=== PATIENT | female | born 1955 | race Caucasian/White ===

== ENCOUNTER → 2016-10-29 | Outpatient (CLI) | payer OTHER | LOC: FIMAGING 17:11 | PROVIDERS: ATTEND Internal Medicine Rheumatology | DX: M19.049 Primary osteoarthritis, unspecified hand (principal) ==

== ENCOUNTER → 2017-04-15 | Outpatient (CLI) | payer OTHER | LOC: FIMAGING 14:25 | PROVIDERS: ATTEND Internal Medicine Endocrinology, Diabetes & Metabolism | DX: Z12.31 Encounter for screening mammogram for malignant neoplasm of breast (principal); Z13.820 Encounter for screening for osteoporosis; Z78.0 Asymptomatic menopausal state; Z82.62 Family history of osteoporosis | CPT/HCPCS: G0202 ==

== ENCOUNTER → 2017-04-19 | Outpatient (CLI) | payer OTHER | LOC: FIMAGING 14:04 | PROVIDERS: ATTEND Surgery | DX: Z00.00 Encounter for general adult medical examination without abnormal findings (principal) ==

== ENCOUNTER 2017-07-14 05:46 | Inpatient (IN) | payer OTHER ==
--- NOTE | 2017-07-08 18:17 | GHP ---
[f rep st] PREOP HISTORY AND PHYSICAL DATE OF ADMISSION: 07/14/2017 HISTORY OF PRESENT ILLNESS: The patient is a 62-year-old woman admitted for a right total knee arthr oplasty. She has a long history of chronic and progressive pain in her right knee. She has been shaila gnosed with rheumatoid arthritis in the past. That diagnosis eventually evolved into a diagnosis of Sjogren syndrome. She has tried cortisone injections and viscosupplementation injections. She has a lso tried an mold unloader brace. She is now having severe daily pain, which is interfering with activiti es of daily living. She is admitted for a right total knee arthroplasty. PAST MEDICAL HISTORY: She has had 2 spontaneous pulmonary emboli. One occurred following a cervical spine fusion in 2009. She is on chronic anticoagulation with Coumadin. She has had a cervical spin e fusion. She has a diagnosis of Sjogren syndrome. No history of heart disease, stents, hepatitis o r bleeding problems. She has sleep apnea and uses a CPAP machine. CURRENT MEDICATIONS: Celebrex 200 mg daily. Cyclobenzaprine 10 mg daily. Forteo for osteoporosis. Effexor 75 mg 3 tablets per day. She monitors her INR and adjusts her Coumadin levels herself. She normally takes between 15 and 20 mg of Coumadin per day. She uses Ambien 10 mg at night for sleep. DRUG ALLERGIES: She is allergic to sulfa drugs, Plaquenil, Azulfidine and Relafen. She states that hydrochlorothiazide has upset her electrolyte balance. METAL ALLERGIES: None. LATEX ALLERGY: None. SOCIAL HISTORY: The patient is . She is retired. She does not smoke cigarettes or drink alc ohol. IMAGING STUDIES: Films from June 03, 2017, show severe medial compartment degenerative arthritis of her right knee. She is [id number]. Osteoporosis is present. IMPRESSION ON ADMISSION: 1. Right knee severe degenerative arthritis. She is prepared for a right total knee arthroplasty. 2. History of pulmonary emboli. She is on chronic anticoagulation. 3. Sjogren syndrome. 4. Sleep apnea. 5. A left total hip arthroplasty in 2011. PLAN: She will undergo a right total knee arthroplasty. The surgery has been described to her and t o her , including the risks, complications, expectations, and recovery time. I have stressed the importance of postoperative physical therapy. She will go to outpatient physical therapy either at our office or at [facility]. Her primary care doctor is Dr. Charly Rush. Dr. Des Martin in is her drivematic machine operator in [place], he manages her anticoagulation. She will have bridge therapy. She will stop her Coumadin 5 days before surgery and take Lovenox up u ntil the day before surgery. The surgery has been described to her, including the risks, complications, expectations, and recovery time. I have stressed the importance of postoperative physical therapy. Aggressive postoperative a nticoagulation for her history of pulmonary emboli increases her risk for postoperative hemarthrosis, stiffness and delayed wound healing. All her questions have been answered, and she consents to surg tamanna. Copy requested to: Des Baez MD /[id number]/MODL
[2017-07-14] MEDS ORDERED: ROPIVACAINE 0.2% 80 MG, EPINEPHrine 0.2 MG, KETOROLAC TROMETHAMINE 30 MG in SYRINGE 0 ML IU ONE (06:00)
[2017-07-14] MEDS ORDERED: POVIDONE-IODINE 20 ML in SODIUM CL IRRIG SOLUTION 500 ML IRR ONE (06:00)
[2017-07-14] MEDS ORDERED: TRANEXAMIC ACID 1,500 MG in NS 100 ML IV ONE (06:00)
[2017-07-14] MEDS ORDERED: FAMOTIDINE 20 MG TAB PO ONE (06:19)
[2017-07-14] MEDS ORDERED: DEXAMETHASONE 4 MG/ML VIAL IVP ONE (06:19)
[2017-07-14] MEDS ORDERED: ACETAMINOPHEN 325 MG TAB PO ONE (06:19)
[2017-07-14] MEDS ORDERED: GABAPENTIN 300 MG CAP PO ONE (06:19)
[2017-07-14] MEDS ORDERED: ceFAZolin 2 GM/SWFI 2 GM/20 ML SYR IVP ONE (06:19)
[2017-07-14] MEDS ORDERED: LIDOCAINE 1% 2 ML INJ ID PRN (06:20)
[2017-07-14] MEDS ORDERED: LR 1,000 ML IV ONE (06:20)
[2017-07-14] MEDS ORDERED: VANCOMYCIN 1 GM VIAL ONE (06:34)
[2017-07-14] MEDS ORDERED: ceFAZolin 1 GM/5 ML SYR ONE (06:35)
--- NOTE | 2017-07-14 06:53 | PDANEPAE ---
ANE History of Present Illness R TKA ANE Past Medical History - Cardiovascular History Hx Hypertension: No Hx Arrhythmias: No Hx Chest Pain: No Hx Coronary Artery / Peripheral Vascular Disease: No Hx CHF / Valvular Disease: No Hx Palpitations: No - Pulmonary History Hx COPD: No Hx Asthma/Reactive Airway Disease: No Hx Recent Upper Respiratory Infection: No Hx Oxygen in Use at Home: No O2 in Use at Home (L/minute): 2L w/CPAP for sleep Hx Sleep Apnea: No Sleep Apnea Screening Result - Last Documented: Positive Pulmonary History Comment: Pulmonary embolism-post op and family hx. On Coumadin. SRIRAM USES CPAP W/2L - Neurologic History Hx Cerebrovascular Accident: No Hx Seizures: No Hx Dementia: No Neurologic History Comment: on Primadone for Essential Tremors - Endocrine History Hx Diabetes: No - Renal History Hx Renal Disorders: Yes Renal History Comment: recent UTI-tx w/Levaquin - Liver History Hx Hepatic Disorders: No - Neurological & Psychiatric Hx Hx Neurological and Psychiatric Disorders: Yes Neurological / Psychiatric History Comment: L5/S1 Spondylolisthesis. Family hx depression- on Effexor. - Cancer History Hx Cancer: Yes Cancer History Comment: basal and squamous cell skin - Congenital Disorder History Hx Congenital Disorders: No - GI History Hx Gastrointestinal Disorders: No - Other Health History Other Health History: R knee pain. RA dx 1983. Osteoporosis- on Forteo. Sjogren's syndrome - Chronic Pain History Chronic Pain: Yes (R knee) - Surgical History Prior Surgeries: Foot sx x4 Right. foot sx x2 Left. Ablation for SVT. BSO. cervical fusion. lap Mirtha. gastric bypass ANE Review of Systems Review of systems is: negative Review of Systems: - Exercise capacity METS (RN): 4 METS ANE Patient History - Allergies Allergies/Adverse Reactions: nabumetone [From Relafen] Allergy (Severe, Verified 07/05/17 16:58) Cognitive Confusion nitrofurantoin [From Macrobid] Allergy (Severe, Verified 07/05/17 16:58) Liver Failure nitrofurantoin macrocrystalline [From Macrobid] Allergy (Severe, Verified 16:58) Liver Failure Sulfa (Sulfonamide Antibiotics) Allergy (Severe, Verified 07/05/17 16:58) Rash sulfasalazine [From Azulfidine] Allergy (Severe, Verified 07/05/17 16:58) Cognitive Confusion hydroxychloroquine sulfate [From Plaquenil] Allergy (Verified 07/05/17 16:58) sulfamethoxazole [From Bactrim] Allergy (Verified 07/05/17 17:06) Rash trimethoprim [From Bactrim] Allergy (Verified 07/05/17 16:58) ORAL GOLD Allergy (Severe, Uncoded 12/05/15 03:52) Cognitive Confusion HYDROCLORTHIAZIDE Allergy (Uncoded 07/05/17 17:06) Other-Enter Comments - Home Medications Home medications: home medication list seen and reviewed Home Medications: Cyclobenzaprine [Flexeril] 10 mg PO BID 08/18/11 [Last Taken 10/11/13] Venlafaxine Xr [Effexor Xr] 75 mg PO TID 08/18/11 [Last Taken 10/11/13] Calcium Carbonate/Vitamin D3 [Calcium 500 + Vit D Caplet] 1 each PO TID [Last Taken 10/11/13] celeCOXIB [Celebrex (RX)] 200 mg PO BID 10/11/13 [Last Taken 10/11/13] Ascorbic Acid [Vitamin C 500 mg (OTC)] 500 mg PO DAILY 10/12/13 [Last Taken ] Ferrous Sulfate [Ferrous Sulf 325 MG (OTC)] 325 mg PO DAILY 10/12/13 [Last Taken 10/11/13] Herbals/Supplements -Info Only 1 each PO AD 10/12/13 [Last Taken Unknown] Multivitamins [Tab-A-Lacy] 1 each PO DAILY 10/12/13 [Last Taken 10/11/13] Primidone 50 mg PO BID 10/12/13 [Last Taken 10/11/13] Warfarin Sodium [Coumadin 5MG (RX)] 20 mg PO DAILY16 10/12/13 [Last Taken ] Cholecalciferol Vit D3 [Vitamin D3 (*)] 1,000 units PO DAILY 06/16/17 [Last Taken Unknown] Ipratropium [place] [IPRATROPIUM BROMIDE] 1 spray EACHNARE DAILY 06/16/17 [Last Taken Unknown] Zolpidem Tartrate [Ambien 5MG (*)] 5 mg PO HS PRN 06/16/17 [Last Taken Unknown] Lovenox 07/05/17 [Last Taken Unknown] - NPO status NPO Status: no food or drink >8 hours NPO Since - Liquids (Date): 07/14/17 NPO Since - Liquids (Time): 05:00 NPO Since - Solids (Date): 07/13/17 NPO Since - Solids (Time): 22:00 - Anes Hx Anes Hx: no prior problems - Smoking Hx Smoking Status: Never smoked - Family Anes Hx Family Anes Hx: none ANE Labs/Vital Signs - Labs Result Diagrams: 07/14/17 06:43 - Vital Signs Blood Pressure: 129/54 Heart Rate: 71 Respiratory Rate: 16 O2 Sat (%): 93 Height: 165.1 cm Weight: 77.111 kg ANE Physical Exam - Airway Neck exam: decreased ROM Mallampati Score: Class 1 Mouth exam: normal dental/mouth exam - Pulmonary Pulmonary: no respiratory distress - Cardiovascular Cardiovascular: regular rate and rhythym - ASA Status ASA Status: III ANE Anesthesia Plan Anesthesia Plan: spinal Regional Anesthesia: adductor canal FNB, POPC/PSR
--- NOTE | 2017-07-14 06:59 | PDHPUP ---
History & Physical Update H&P update statement: This history and physical update is based on an assessment of the patient which was completed after admission or registration (within 24 hours), but prior to the surgery/procedure. H&P update: H&P reviewed & patient examined, no change in patient's condition since H&P completed
[2017-07-14 07:15] LABS: ANION GAP 10 mEq/L (8-16); CALCIUM 9.4 mg/dL (8.5-10.4); CARBON DIOXIDE 25 mEq/l (22-31); CHLORIDE 100 mEq/L (97-110); CREATININE 0.6 mg/dL (0.6-1.0); GLOMERULAR FILTRATION RATE > 60; GLUCOSE 91 mg/dL (70-100); SODIUM 135 mEq/L (134-144)
[2017-07-14] MEDS ORDERED: LIDOCAINE 2% 100 MG/5 ML SYR ONE (07:15)
[2017-07-14] MEDS ORDERED: PROPOFOL/EMULSION 500 MG/50 ML BOTTLE IV ONE ×2 (07:15→08:21)
[2017-07-14] MEDS ORDERED: ROPIVACAINE HCL 150 MG/30 ML INJ ONE (08:16)
[2017-07-14] MEDS ORDERED: ONDANSETRON 4 MG/2 ML VIAL ONE (08:26)
[2017-07-14] MEDS ORDERED: TRANEXAMIC ACID 770 MG in NS 100 ML IV ONE (08:30)
--- NOTE | 2017-07-14 08:54 | POSTANESTH ---
Post Anesthetic Evaluation Cardiovascular Status: Normal, Stable, Similar to Pre-Op Cond Respiratory Status: Similar to Pre-op Cond. Level of Consciousness/Mental Status: Can Participate in Eval, Mildly Sleepy, Arousable Pain Control: Adequate, Prn Tx Ordered Nausea/Vomiting Control: Adequate, Prn Tx Ordered Complications Possibly Related to Anesthesia: None Noted
[2017-07-14] MEDS ORDERED: PROMETHAZINE HCL 25 MG/ML INJ IVP PRN ×2 (08:55→09:18)
[2017-07-14] MEDS ORDERED: ONDANSETRON 4 MG/2 ML VIAL IVP PRN ×2 (08:55→09:18)
[2017-07-14] MEDS ORDERED: HYDROmorphONE/DILAUDID 1 MG/ML INJ IVP PRN (08:55)
[2017-07-14] MEDS ORDERED: DEXAMETHASONE 4 MG/ML VIAL IVP PRN (08:55)
[2017-07-14] MEDS ORDERED: ACETAMINOPHEN 500 MG TAB PO PRN (08:55)
[2017-07-14] MEDS ORDERED: NALOXONE HCL 0.4 MG/ML INJ IVP PRN (08:55)
[2017-07-14] MEDS ORDERED: fentaNYL 100 MCG/2 ML INJ IVP PRN (08:55)
[2017-07-14] MEDS ORDERED: OXYCODONE/APAP 5/325 TAB PO PRN (08:55)
[2017-07-14] MEDS ORDERED: HYDROCODONE/APAP 5/325 TAB PO PRN (08:55)
--- NOTE | 2017-07-14 09:04 | POSTOPPROG ---
Post Op Note Date of Operation: 07/14/17 Surgeon: Servando Bravo Railway Shunter: Des Olivas/Cas Manning Anesthesiologist: Dr. Antonio Kent Anesthesia: IV Sedation, Spinal Post-op Diagnosis: Right knee severe degenerative arthritis. Procedure: Right total knee arthroplasty. Inf/Abcess present in the surg proc area at time of surgery?: No EBL: 50-100 (Adductor canal block with indwelling catheter in PACU.)
[2017-07-14] MEDS ORDERED: ZOLPIDEM TARTRATE 5 MG TAB PO PRN (09:15)
[2017-07-14] MEDS ORDERED: MAGNESIUM HYDROXIDE 30 ML UDCUP PO PRN (09:18)
[2017-07-14] MEDS ORDERED: diphenhydrAMINE 25 MG CAP PO PRN (09:18)
[2017-07-14] MEDS ORDERED: NS 500 ML IV PRN (09:18)
[2017-07-14] MEDS ORDERED: ONDANSETRON DISINTEGRATING 4 MG TAB PO PRN (09:18)
[2017-07-14] MEDS ORDERED: traMADol 50 MG TAB PO PRN (09:18)
[2017-07-14] MEDS ORDERED: LACTULOSE 20 GM/30 ML UDCUP PO PRN (09:18)
[2017-07-14] MEDS ORDERED: CYCLOBENZAPRINE 10 MG TAB PO PRN (09:18)
[2017-07-14] MEDS ORDERED: BISACODYL 10 MG SUPP PR PRN (09:18)
[2017-07-14] MEDS ORDERED: PROMETHAZINE HCL 25 MG SUPPR PR PRN (09:18)
[2017-07-14] MEDS ORDERED: POLYETHYLENE GLYCOL 3350 17 GM PKT PO PRN (09:18)
[2017-07-14] MEDS ORDERED: KETOROLAC 30 MG/1 ML SDV IVP PRN (09:18)
[2017-07-14] MEDS ORDERED: DIPHENOXYLATE/ATROPINE LOMOTIL 1 TAB PO PRN (09:18)
[2017-07-14] MEDS ORDERED: LR 1,000 ML IV SCH (09:30)
[2017-07-14] MEDS: oxyCODONE IR 5 MG TAB PO PRN ×3 (11:16→21:04)
[2017-07-14] MEDS: ACETAMINOPHEN 325 MG TAB PO SCH ×3 (11:17→23:31)
[2017-07-14] MEDS ORDERED: WARFARIN SODIUM 5 MG TAB PO SCH (16:00)
[2017-07-14] MEDS: VENLAFAXINE XR 75 MG CAP PO SCH ×2 (16:30→21:04)
[2017-07-14] MEDS: ceFAZolin 2 GM/SWFI 2 GM/20 ML SYR IVP SCH ×2 (16:34→23:32)
[2017-07-14] MEDS: WARFARIN SODIUM 5 MG TAB PO SCH (17:31)
[2017-07-14] MEDS: SENNOSIDES/DOCUSATE SODIUM TAB PO SCH (21:04)
[2017-07-14] MEDS: PRIMIDONE 50 MG TAB PO SCH (21:04)
[2017-07-14] MEDS: FAMOTIDINE 20 MG TAB PO SCH (21:04)
[2017-07-14] MEDS ORDERED: Teriparatide [Forteo] 2.4 ML SQ SCH (21:45)
[2017-07-15] MEDS: oxyCODONE IR 5 MG TAB PO PRN ×4 (00:47→13:02)
[2017-07-15 04:39] VITALS: TEMP 97.7
[2017-07-15] MEDS: ACETAMINOPHEN 325 MG TAB PO SCH ×2 (05:28→12:44)
[2017-07-15 06:45] LABS: HEMATOCRIT 35.2 % (38.0-47.0); HEMOGLOBIN 11.8 g/dL (12.6-16.3)
[2017-07-15 06:58] LABS: INR 1.2 (0.83-1.16); PROTIME(PATIENT) 15.4 SEC (12.0-15.0)
--- NOTE | 2017-07-15 07:36 | SOAPPROG ---
SOAP Progress Note Assessment/Plan: Assessment: Afebrile. Awake and alert. She has been walking in the [place]. Moderate pain this morning. Hemoglobin and hematocrit are satisfactory. Postop films look excellent. Plan: Physical therapy today for walking and stairs. Discharged later today. We will continue her on Lovenox for 4 days and she will resume her Coumadin. She is high risk for DVT. 07/15/17 07:35 Objective: Vital Signs Temp Pulse Resp BP Pulse Ox 36.5 C 76 18 132/54 H 95 07/15/17 04:00 07/15/17 04:00 07/15/17 04:00 07/15/17 04:00 07/15/17 04:00 Laboratory Results 07/15/17 05:20 07/14/17 06:43 07/14/17 07/15/17 07/16/17 05:59 05:59 05:59 Intake Total 3027 Output Total 1500 Balance 1527 PT 15.4 SEC (12.0-15.0) H 07/15/17 05:20 INR 1.20 (0.83-1.16) H 07/15/17 05:20 ICD10 Worksheet Patient Problems: Problems Problem Status Onset Osteoarthritis of right knee Acute Chest pain Acute
--- NOTE | 2017-07-15 08:15 | GDS ---
[f rep st] DISCHARGE SUMMARY ADMISSION DIAGNOSIS: Right knee severe degenerative arthritis. DISCHARGE DIAGNOSIS: Right knee severe degenerative arthritis. PROCEDURE PERFORMED: 07/14/2017, a right total knee arthroplasty. POSTOPERATIVE COMPLICATIONS: None. CONDITION ON DISCHARGE: Improved. DESCRIPTION OF HOSPITAL COURSE: The patient was admitted to the hospital on the morning of surgery. The same day, under a combination of Marcaine, spinal, IV sedation, and adductor canal block she und erwent a right total knee arthroplasty. Postoperatively, she was treated with multimodal DVT prophyl axis. She is high risk for DVT. She was placed on Lovenox and her Coumadin was restarted. On the f irst postoperative day, her hemoglobin and hematocrit were 11.8 and 35.2. She was seen by Physical T herapy and made good progress with ambulation, stairs and knee range of motion. By the time of disch arge, she was afebrile and was independent walking. DISPOSITION: The patient is discharged to her home. She will go to outpatient physical therapy next week. She will continue Lovenox 40 mg subcu daily for 4 days. She will adjust her Coumadin dose to between 15 and 20 mg a day based on her INR. She checks her INR herself. She has prescriptions for oxycodone and tramadol. I will see her back in the office on 08/05/2017. If there are any problems , she is to call me at the office. /[id number]/MODL
[2017-07-15] MEDS ORDERED: ENOXAPARIN 40 MG/0.4 ML SYR SC SCH (09:00)
[2017-07-15] MEDS ORDERED: FERROUS SULFATE 325 MG TAB PO SCH (09:00)
[2017-07-15] MEDS ORDERED: IPRATROPIUM 0.06% NASAL SPRAY EACHNARE SCH (09:00)
[2017-07-15] MEDS: SENNOSIDES/DOCUSATE SODIUM TAB PO SCH (09:49)
[2017-07-15] MEDS: VENLAFAXINE XR 75 MG CAP PO SCH ×2 (09:50→16:08)
[2017-07-15] MEDS: FAMOTIDINE 20 MG TAB PO SCH (09:50)
[2017-07-15] MEDS: PRIMIDONE 50 MG TAB PO SCH (09:50)
[2017-07-15 09:59] VITALS: BP 139/62; PULSE 66; RESP 16; O2SAT 96
--- NOTE | 2017-07-15 10:04 | SOAPPROG ---
SOAP Progress Note Assessment/Plan: Assessment: Plan: 07/15/17 10:03 CADC cath bolus 20 cc .5% Rop, w/o incident. Cath d/C tip intact Objective: Vital Signs Temp Pulse Resp BP Pulse Ox 36.5 C 66 16 139/62 H 96 07/15/17 04:00 07/15/17 09:00 07/15/17 09:00 07/15/17 09:00 07/15/17 09:00 Laboratory Results 07/15/17 05:20 07/14/17 06:43 07/14/17 07/15/17 07/16/17 05:59 05:59 05:59 Intake Total 3027 Output Total 1500 Balance 1527 PT 15.4 SEC (12.0-15.0) H 07/15/17 05:20 INR 1.20 (0.83-1.16) H 07/15/17 05:20 ICD10 Worksheet Patient Problems: Problems Problem Status Onset Osteoarthritis of right knee Acute Chest pain Acute
--- NOTE | 2017-07-15 14:50 | ASMTCMCOM ---
CM Note CM Note Notes: Pt medically stable for d/c, PT does not rec HHC. No CM d/c needs identified. Date Signed: 07/15/2017 02:50 PM Electronically Signed By:NICOLE Aranda
[2017-07-15] MEDS: WARFARIN SODIUM 5 MG TAB PO SCH (16:08)
--- NOTE | 2017-07-16 09:45 | ASDISCHSUM ---
Discharge Information Plan Status:Home with No Needs Medically Cleared to Leave: Discharge Date:07/15/2017 05:37 PM D/C Disposition:Home, Routine, Self-Care ADT D/C Disposition:Home, Routine, Self-Care Projected Discharge Date:07/15/2017 05:37 PM Transportation at D/C: Discharge Delay Reason: Follow-Up Date:07/15/2017 05:37 PM Discharge Slot: Final Diagnosis: Placement Information Patient Contact Information Contact Name:REMIGIO Relationship: Address:[address] [place] Alternate Phone: [facility]/Zip Code:[place] [address] Email: Financial Information Financial Class:[facility] Primary Plan Desc:[employer] LOCAL Primary Plan Number:[id number] Secondary Plan Desc: Secondary Plan Number: Assessment Information [facility] CM Progress Note CM Note CM Note Notes: Pt medically stable for d/c, PT does not rec HHC. No CM d/c needs identified. Date Signed: 07/15/2017 02:50 PM Electronically Signed By:NICOLE Aranda Intervention Information
== END 2017-07-15 17:37 | disposition home or self-care (01) | DRG 470 ==
LOC: F3N 05:46
PROVIDERS: ADMIT Orthopaedic Surgery; ATTEND Orthopaedic Surgery
PROC: 0SRC0JZ Replacement of Right Knee Joint with Synthetic Substitute, Open Approach (ICD-10-PCS; principal; 2017-07-14 07:15)
DX: M17.11 Unilateral primary osteoarthritis, right knee (principal); M06.9 Rheumatoid arthritis, unspecified; M35.00 Sjogren syndrome, unspecified; M81.0 Age-related osteoporosis without current pathological fracture; G47.30 Sleep apnea, unspecified; Z98.1 Arthrodesis status; Z79.01 Long term (current) use of anticoagulants; Z96.642 Presence of left artificial hip joint; Z86.711 Personal history of pulmonary embolism
CPT/HCPCS: 97110-GP; 97116-GP; 97161-GP; 97165-GO; C1713; G8987-GO-CI; G8988-GO-CI; G8989-GO-CI; J0171; J0690; J1100; J1650; J1885; J2001; J2405; J2704; J2795; J3370

== ENCOUNTER 2018-04-11 22:02 | Emergency (ER) | payer OTHER ==
--- NOTE | 2018-04-11 22:33 | EDPHY ---
H & P Stated Complaint: trip fall and lac to l thumb Time Seen by Provider: 04/11/18 22:33 HPI/ROS: HPI CHIEF COMPLAINT: Mechanical trip and fall. HISTORY OF PRESENT ILLNESS: This is a 62-year-old female, she is on Coumadin, she has a history of pulmonary emboli, she presents emergency room after she states she was unloading self from the back of her car and she tripped on the ledge of her driveway. This caused her left ankle to rule in and she fell. Predominately fell on her left side. She states she landed on her left hip, and left elbow. However denies any significant pain there and is feeling fine however she states right after she fell she is unsure she had her head but developed a headache. And the fact that she is on Coumadin this concerned her so she decided come to the emergency room. Her neurological exam here is unremarkable. She states the headache is improving. This injury happened a 30 tonight. It is now 1045 at night. She denies neck pain, denies chest pain, denies shortness of breath, denies syncope. However is unsure if she actually hit her head. But she had a left-sided headache and fell on her left side. She states her last INR check was Wednesday and was 3 point something. Additionally the patient has a very small superficial laceration left thumb. Does not need repair. Patient reports tetanus shot up-to-date. Past Medical History: History of pulmonary embolism on Coumadin Past Surgical History: Multiple orthopedic surgeries specifically left hip. Social History: Denies drugs alcohol tobacco. Family History: Noncontributory. ROS REVIEW OF SYSTEMS: 10 Systems were reviewed and negative with the exception of the elements mentioned in the history of present illness. Exam Constitutional appears well nontoxic no acute distress, triage nursing summary reviewed, vital signs reviewed, awake/alert. Eyes normal conjunctivae and sclera, EOMI, PERRLA. HENT head/neck atraumatic on exam. GCS 15,, moist mucus membranes, no epistaxis, neck supple/ no meningismus, no raccoon eyes. Respiratory clear to auscultation bilaterally, normal breath sounds, no respiratory distress, no wheezing. Cardiovascular rate normal, regular rhythm, no murmur, no edema, distal pulses normal. Gastrointestinal soft, non-tender, no rebound, no guarding, normal bowel sounds, no distension, no pulsatile mass. Genitourinary no CVA tenderness. Musculoskeletal no midline vertebral tenderness, full range of motion, no calf swelling, no tenderness of extremities, no meningismus, good pulses, neurovascularly intact. Skin pink, warm, & dry, no rash, skin atraumatic. Neurologic GCS 15, awake, alert and oriented x 3, AAOx3, moves all 4 extremities equally, motor intact, sensory intact, CN II-XII intact, normal cerebellar, normal vision, normal speech. Psychiatric normal mood/affect. Heme/Lymph/Immune no lymphadenopathy. Differential Diagnosis: Includes but is not limited to in a particular order: Closed-head injury, intracranial bleed, subdural, traumatic subarachnoid Medical Decision Making: Plan for this patient CT scan head without contrast, reason for CT scan fall, headache, on Coumadin. Re-evaluation: Check INR. CT scan head without contrast for trauma negative for acute traumatic injury no evidence of bleed or skull fracture. Called to me by Dr. Wilks INR 2.89. 2318: Patient re-evaluated resting comfortably no acute distress. Denies any complaints at this time. Would like to go home. She is unremarkable neurological exam. Return precautions discussed with her and her . If she has developed worsening headache, fever, vomiting, not doing well return emergency room immediately. They understand Source: Patient - Personal History Current Tetanus/Diphtheria Vaccine: Yes Current Tetanus Diphtheria and Acellular Pertussis (TDAP): Yes Tetanus Vaccine Date: 06/11/97 - Medical/Surgical History Hx Asthma: No Hx Chronic Respiratory Disease: No Hx Diabetes: No Hx Cardiac Disease: Yes Hx Renal Disease: No Hx Cirrhosis: No Hx Alcoholism: No Hx HIV/AIDS: No Hx Splenectomy or Spleen Trauma: No Other PMH: PE X 2, cervical fusion, skin CA, spodilathiais L5-S, L hip replacement, cardiac ablation, 6 foot surgeries, gallbladder, gastric bipass 2002 - Social History Smoking Status: Never smoked Constitutional: Initial Vital Signs Temperature (C) 36.6 C 04/11/18 22:22 Heart Rate 66 04/11/18 22:22 Respiratory Rate 18 04/11/18 22:22 Blood Pressure 117/61 04/11/18 22:22 O2 Sat (%) 98 04/11/18 22:22 O2 Delivery Mode Room Air Allergies/Adverse Reactions: nabumetone [From Relafen] Allergy (Severe, Verified 07/05/17 16:58) Cognitive Confusion nitrofurantoin [From Macrobid] Allergy (Severe, Verified 07/05/17 16:58) Liver Failure nitrofurantoin macrocrystalline [From Macrobid] Allergy (Severe, Verified 16:58) Liver Failure Sulfa (Sulfonamide Antibiotics) Allergy (Severe, Verified 07/14/17 09:53) Rash sulfasalazine [From Azulfidine] Allergy (Severe, Verified 07/05/17 16:58) Cognitive Confusion hydroxychloroquine sulfate [From Plaquenil] Allergy (Verified 07/05/17 16:58) sulfamethoxazole [From Bactrim] Allergy (Verified 07/05/17 17:06) Rash trimethoprim [From Bactrim] Allergy (Verified 07/05/17 16:58) ORAL GOLD Allergy (Severe, Uncoded 12/05/15 03:52) Cognitive Confusion HYDROCLORTHIAZIDE Allergy (Uncoded 07/05/17 17:06) Other-Enter Comments Home Medications: Medication Instructions Recorded Cyclobenzaprine [Flexeril 10 MG 10 mg PO BID 08/18/11 (*)] Venlafaxine Xr [Effexor Xr 75MG 75 mg PO TID 08/18/11 (*)] Calcium Carbonate/Vitamin D3 1 each PO TID 10/11/13 [Calcium 500 + Vit D Caplet] celeCOXIB [Celebrex (*)] 200 mg PO BID 10/11/13 Ascorbic Acid [Vitamin C 500 mg 500 mg PO DAILY 10/12/13 (*)] Ferrous Sulfate [Ferrous Sulf 325 325 mg PO DAILY 10/12/13 MG (*)] Herbals/Supplements -Info Only 1 each PO AD 10/12/13 Multivitamins [Multivitamin (*)] 1 each PO DAILY 10/12/13 Primidone 50 mg PO BID 10/12/13 Warfarin Sodium [Coumadin 5MG (*)] 20 mg PO DAILY16 10/12/13 Cholecalciferol Vit D3 [Vitamin D3 1,000 units PO DAILY 06/16/17 (*)] Ipratropium [place] [IPRATROPIUM 1 spray EACHNARE DAILY 06/16/17 BROMIDE] Zolpidem Tartrate [Ambien 5MG (*)] 5 mg PO HS PRN 06/16/17 Acetaminophen [Tylenol 325mg (*)] 650 mg PO Q6HRS tab 07/15/17 Enoxaparin [Lovenox 40 MG (*)] 40 mg SC DAILY #4 syr 07/15/17 celeCOXIB [Celebrex (*)] 200 mg PO DAILY cap 07/15/17 Medical Decision Making - Diagnostics Imaging Results: Imaging Impressions Head CT 04/11/18 22:41 Impression: 1. Normal CT brain without contrast. 2. No epidural or subdural hematoma. Findings and recommendations discussed with Emergency Department physician, Ky Perez MD at 23:01 hour, 04/11/2018. Final report concurs with initial preliminary interpretation. - Data Points Laboratory Results: 04/11/18 22:59 PT 30.1 SEC H SEC (12.0-15.0) INR 2.89 H (0.83-1.16) Departure - Departure Disposition: Home, Routine, Self-Care Clinical Impression: Multiple contusions Fall Qualifiers: Encounter type: initial encounter Qualified Code(s): W19.XXXA - Unspecified fall, initial encounter Condition: Good Instructions: Contusion in Adults (ED) Additional Instructions: 1. Return emergency room immediately if he develops worsening headache, vomiting , not doing well Referrals: Marko Rush MD [Primary Care Provider] - As per Instructions
[2018-04-11 23:06] VITALS: BP 128/86
[2018-04-11 23:17] LABS: INR 2.89 (0.83-1.16); PROTIME(PATIENT) 30.1 SEC (12.0-15.0)
== END 2018-04-11 23:40 | disposition home or self-care (01) ==
DX: S61.012A Laceration without foreign body of left thumb without damage to nail, initial encounter (principal); R51 Headache; T14.8XXA Other injury of unspecified body region, initial encounter; B37.0 Candidal stomatitis; Z79.01 Long term (current) use of anticoagulants; W17.89XA Other fall from one level to another, initial encounter; Y92.008 Other place in unspecified non-institutional (private) residence as the place of occurrence of the external cause; R40.2412 Glasgow coma scale score 13-15, at arrival to emergency department

== ENCOUNTER → 2018-06-02 | Outpatient (CLI) | payer OTHER | LOC: FIMAGING 16:26 | PROVIDERS: ATTEND Internal Medicine | DX: Z12.31 Encounter for screening mammogram for malignant neoplasm of breast (principal) ==